=== PATIENT | female | born 1955 ===

== ENCOUNTER 2018-08-16 10:18 | Outpatient (CLI) | payer OTHER | END 2018-08-16 10:19 | disposition home or self-care (01) | LOC: C.LAB 10:18 | DX: E11.9 Type 2 diabetes mellitus without complications (principal) ==

== ENCOUNTER 2018-09-27 08:07 | Outpatient (CLI) | payer OTHER | END 2018-09-27 08:08 | disposition home or self-care (01) | LOC: C.LAB 08:07 | DX: E11.9 Type 2 diabetes mellitus without complications (principal) ==

== ENCOUNTER 2018-11-29 08:20 | Outpatient (CLI) | payer OTHER | END 2018-11-29 08:21 | disposition home or self-care (01) | LOC: C.LAB 08:20 | DX: E11.9 Type 2 diabetes mellitus without complications (principal) ==